=== PATIENT | female | born 1980 | race American Indian/Alaskan Native ===

== ENCOUNTER 2017-02-06 18:16 | Emergency (ER) | payer SELFPAY ==
[2017-02-06 19:55] LABS: Basophils % (Auto) 0.8 % (0.0-1.8); Eosinophils % (Auto) 3.8 % (0.0-4.3); Hematocrit 37.7 % (30.3-42.9); Hemoglobin 12.4 gm/dl (10.1-14.3); Mean Corpuscular HGB Conc 33 % (30-34); Mean Corpuscular Hemoglobin 31 pg (28-32); Mean Corpuscular Volume 93 fl (79-97); Platelet Count 292 K/mm3 (140-440); Red Blood Count 4.06 M/mm3 (3.65-5.03); Red Cell Distribution Width 13.7 % (13.2-15.2); White Blood Count 4.1 K/mm3 (4.5-11.0)
[2017-02-06 20:13] LABS: Alanine Aminotransferase 8 units/L (7-56); Alkaline Phosphatase 56 units/L (35-129); Anion Gap 15 mmol/L; BUN/Creatinine Ratio 14.28; Bilirubin,Total < 0.20 mg/dL (0.1-1.2); Blood Urea Nitrogen 10 mg/dL (7-17); Calcium 8.6 mg/dL (8.4-10.2); Carbon Dioxide 26 mmol/L (22-30); Chloride 99.8 mmol/L (98-107); Glucose 78 mg/dL (65-100); Lipase 23 units/L (13-60); Potassium 3.8 mmol/L (3.6-5.0); Sodium 137 mmol/L (137-145); Total Protein 8.1 g/dL (6.3-8.2)
[2017-02-06 20:33] LABS: Bacteria,Urine 2+ /HPF (Negative); Bilirubin,Urine NEG (Negative); Blood,Urine SM (Negative); Ketones,Urine TR mg/dL (Negative); Leukocyte Esterase,Urine TR (Negative); Mucus,Urine FEW /HPF; Nitrite,Urine NEG (Negative); Protein,Urine <15 mg/dL mg/dL (Negative); Urobilinogen,Urine < 2.0 mg/dL (<2.0); WBC,Urine < 1.0 /HPF (0.0-6.0)
[2017-02-06] MEDS ORDERED: ZOFRAN IV ONE (22:56)
[2017-02-06] MEDS ORDERED: NACL 0.9% 1000 ML 1,000 ML IV ONE (22:56)
--- NOTE | 2017-02-06 22:58 | Emergency Department Report ---
ED General Adult HPI - General Chief complaint: Abdominal Pain Stated complaint: SOB/ABD/PAIN/VOMATING/BLEEDING Time Seen by Provider: 02/06/17 22:44 Source: patient Mode of arrival: Ambulatory Limitations: No Limitations - History of Present Illness Initial comments: This is a 36-year-old female. She is previously unknown to me. Her primary care doctor is Dr. Kishore Blum. Her type copy examiner is at [place], but she does not know her name is. The patient has a past medical history of right ventricular thrombosis, which was treated with anticoagulation in 2010. She also has a past medical history of hypertension, asthma, sjogren syndrome The patient presents to the ER with numerous complaints. Her first complaint is abdominal pain. Her abdominal pain is achy. It is in the lower quadrants. It is associated with vaginal bleeding and cramping. She reports that she's been having vaginal bleeding intermittently. She also reports vomiting and breast discharge. The emesis is clear, nonbloody and nonbilious. The symptoms have no exacerbating or relieving factors; the exception is the abdominal pain, which increases with palpation. The patient also complains of shortness of breath. She reports that she was outside working in her garden, and felt like she began to have shortness of breath. There is no leg pain. There is no leg swelling. No recent trips greater than 4 hours. No recent hospitalizations. The patient describes a few episodes of nausea and vomiting. The patient has no sudden thunderclap headache. There is no chest pain. The patient had a nuclear stress test performed at this hospital in June 2016, which was read to be a normal myocardial perfusion study, with an ejection fraction of 65%. In addition, she had a transthoracic echocardiogram, which demonstrated an ejection fraction of 55-60%. Her main complaint is abdominal pain, vaginal bleeding, shortness of breath. There is no cocaine use. -: Gradual Location: abdomen, pelvis Severity scale (0 -10): 6 Quality: aching Consistency: intermittent Improves with: rest Worsens with: movement Associated Symptoms: loss of appetite, malaise, shortness of breath, weakness. denies: confusion, chest pain - Related Data Previous Rx's Medication Instructions Recorded Last Taken Type Albuterol Sulfate [Proair 90 mcg IH Q4HR PRN #2 aer.pow.ba 02/07/17 Unknown Rx Respiclick] Ketorolac [Toradol] 10 mg PO Q6H PRN #20 tablet 02/07/17 Unknown Rx Ondansetron [Zofran Odt] 4 mg PO QID PRN #20 tab.rapdis 02/07/17 Unknown Rx Allergies Allergy/AdvReac Type Severity Reaction Status Date / Time codeine Allergy Hives Verified 02/26/15 12:25 ED Review of Systems ROS: Stated complaint: SOB/ABD/PAIN/VOMATING/BLEEDING Other details as noted in HPI Constitutional: malaise Eyes: denies: vision change ENT: congestion. denies: epistaxis Respiratory: shortness of breath Gastrointestinal: abdominal pain Genitourinary: abnormal menses Musculoskeletal: back pain, arthralgia Neurological: headache Psychiatric: anxiety ED Past Medical Hx - Past Medical History Previous Medical History?: Yes Hx Hypertension: Yes Hx Congestive Heart Failure: No Hx Diabetes: No Hx Asthma: No Hx COPD: No Hx HIV: No Additional medical history: Anxiety, Sjogrens disease - Surgical History Past Surgical History?: Yes Additional Surgical History: UFE. TUBAL LIGATION - Social History Smoking Status: Never Smoker Substance Use Type: None - Medications Home Medications: Home Medications Medication Instructions Recorded Confirmed Last Taken Type Albuterol Sulfate [Proair 90 mcg IH Q4HR PRN #2 aer.pow.ba 02/07/17 Unknown Rx Respiclick] Ketorolac [Toradol] 10 mg PO Q6H PRN #20 tablet 02/07/17 Unknown Rx Ondansetron [Zofran Odt] 4 mg PO QID PRN #20 tab.rapdis 02/07/17 Unknown Rx ED Physical Exam - General Limitations: No Limitations General appearance: alert, in no apparent distress - Head Head exam: Present: atraumatic, normocephalic - Eye Eye exam: Present: normal appearance, EOMI, other (visual acuity intact to finger counting, color perception, reading at a close distance). Absent: nystagmus - ENT ENT exam: Present: normal exam, normal orophraynx, mucous membranes moist, normal external ear exam - Neck Neck exam: Present: normal inspection, full ROM. Absent: tenderness, meningismus - Respiratory Respiratory exam: Present: normal lung sounds bilaterally. Absent: respiratory distress, wheezes, rales, rhonchi, stridor, chest wall tenderness, accessory muscle use, decreased breath sounds, prolonged expiratory - Cardiovascular Cardiovascular Exam: Present: regular rate, normal rhythm, normal heart sounds. Absent: bradycardia, tachycardia, irregular rhythm, systolic murmur, diastolic murmur, rubs, gallop - GI/Abdominal GI/Abdominal exam: Present: soft, tenderness (there is mild lower abdominal tenderness, there is no rebound, guarding or peritoneal signs.), normal bowel sounds. Absent: distended, guarding, rebound, rigid, pulsatile mass - External exam: Present: normal external exam Speculum exam: Present: vaginal bleeding Bi-manual exam: Present: normal bi-manual exam, other (escorted by nurse Florinda Srivastava). Absent: cervical motion tendernes, adnexal tenderness, adnexal mass - Extremities Exam Extremities exam: Present: normal inspection, full ROM, normal capillary refill. Absent: tenderness, pedal edema, joint swelling, calf tenderness - Back Exam Back exam: Present: normal inspection, full ROM. Absent: tenderness, CVA tenderness (R), CVA tenderness (L), muscle spasm, paraspinal tenderness, vertebral tenderness - Neurological Exam Neurological exam: Present: alert, oriented X3, normal gait (there is no pass pointing. Negative pronator drift. Normal [id number]. Normal gait. Normal tandem gait. Negative Romberg examination), other (Extraocular movements intact. Tongue midline. No facial droop. Facial sensation intact to light touch in the V1, V2, V3 distribution bilaterally. 5 and 5 strength in 4 extremities.. Sensation is intact to light touch in 4 extremities.). Absent: motor sensory deficit - Skin Skin exam: Present: warm, dry, intact, normal color. Absent: rash ED Course Vital Signs 02/06/17 02/06/17 02/06/17 19:19 22:37 22:39 Temperature 98.1 F Pulse Rate 80 71 Respiratory 18 18 18 Rate Blood Pressure 140/93 Blood Pressure 133/79 [Right] O2 Sat by Pulse 100 100 Oximetry 02/07/17 02/07/17 01:43 03:56 Temperature Pulse Rate 71 62 Respiratory 18 18 Rate Blood Pressure Blood Pressure 129/79 136/84 [Right] O2 Sat by Pulse 100 100 Oximetry - Reevaluation(s) Reevaluation #1: 02/07/17 01:23 differential diagnosis: Bronchitis, allergies, pneumonia, pulmonary embolus, acute coronary syndrome, colitis, diverticulitis, appendicitis, renal colic, pelvic inflammatory disease, dysfunctional uterine bleeding Assessment and plan: 36-year-old female with numerous nonspecific complaints. She is afebrile with reassuring vital signs. Her EKG is morphologically abnormal, but appears unchanged compared to prior EKG. She had a negative nuclear stress test within the past 12 months. Low risk by BUDDY score, low risk by heart score, no pulmonary embolus or DVT risk factors, however she is unable to explain where the right ventricular thrombus came from, therefore a d-dimer sent to risk stratify the patient for pulmonary embolus. X-ray the chest is unremarkable. She has minimal vaginal bleeding, but does not have significant gynecologic tenderness, therefore think pelvic inflammatory disease is unremarkable. She is actively vomiting when I'm interviewing her initially. However this improved after IV fluids and Zofran. A d-dimer is currently pending. Her abdomen is minimally tender, with no rebound, guarding or peritoneal signs. Reevaluation #2: 02/07/17 01:34 Of note, the patient also complained of nonspecific breast discharge. On her breast examination the breasts are nontender, there is no obvious discharge. During the breast examination, I am escorted by nurse Florinda Srivastava Reevaluation #3: 02/07/17 04:02 The patient is reassessed. There is no active vomiting. Her abdomen is now soft on repeat examination. Noncontrast CT scan demonstrates no acute disease that would require emergent intervention. Nonspecific lesion noted in the right ovary. She had a benign gynecologic examination. Therefore think ovarian torsion is very unlikely. She can follow up with an outpatient gynecology for this. Patient will be discharged with pain medication, nausea medication, instructions to follow up with outpatient gynecology. Return precautions are reviewed. ED Medical Decision Making - Lab Data Result diagrams: 02/06/17 19:37 02/06/17 19:37 Vital Signs 02/06/17 02/06/17 02/06/17 19:19 22:37 22:39 Temperature 98.1 F Pulse Rate 80 71 Respiratory 18 18 18 Rate Blood Pressure 140/93 Blood Pressure 133/79 [Right] O2 Sat by Pulse 100 100 Oximetry Lab Results 02/06/17 02/06/17 02/06/17 Range/Units 19:37 19:37 20:15 WBC 4.1 L (4.5-11.0) K/mm3 RBC 4.06 (3.65-5.03) M/mm3 Hgb 12.4 (10.1-14.3) gm/dl Hct 37.7 (30.3-42.9) % MCV 93 (79-97) fl MCH 31 (28-32) pg MCHC 33 (30-34) % RDW 13.7 (13.2-15.2) % Plt Count 292 (140-440) K/mm3 Lymph % (Auto) 51.2 H (13.4-35.0) % Weber % (Auto) 7.7 H (0.0-7.3) % Eos % (Auto) 3.8 (0.0-4.3) % Baso % (Auto) 0.8 (0.0-1.8) % Lymph # 2.1 (1.2-5.4) K/mm3 Weber # 0.3 (0.0-0.8) K/mm3 Eos # 0.2 (0.0-0.4) K/mm3 Baso # 0.0 (0.0-0.1) K/mm3 Seg Neutrophils % 36.5 L (40.0-70.0) % Seg Neutrophils # 1.5 L (1.8-7.7) K/mm3 Sodium 137 (137-145) mmol/L Potassium 3.8 (3.6-5.0) mmol/L Chloride 99.8 (98-107) mmol/L Carbon Dioxide 26 (22-30) mmol/L Anion Gap 15 mmol/L BUN 10 (7-17) mg/dL Creatinine 0.7 (0.7-1.2) mg/dL Estimated GFR > 60 ml/min BUN/Creatinine Ratio 14.28 % Glucose 78 (65-100) mg/dL Calcium 8.6 (8.4-10.2) mg/dL Total Bilirubin < 0.20 (0.1-1.2) mg/dL AST 14 (5-40) units/L ALT 8 (7-56) units/L Alkaline Phosphatase 56 (35-129) units/L Troponin T (0.00-0.029) ng/mL Total Protein 8.1 (6.3-8.2) g/dL Albumin 4.0 (3.9-5) g/dL Albumin/Globulin Ratio 1.0 % Lipase 23 (13-60) units/L Urine Color Yellow (Yellow) Urine Turbidity Clear (Clear) Urine pH 5.0 (5.0-7.0) Ur Specific [place] 1.026 (1.003-1.030) Urine Protein <15 mg/dl (Negative) mg/dL Urine Glucose (UA) Neg (Negative) mg/dL Urine Ketones Tr (Negative) mg/dL Urine Blood Sm (Negative) Urine Nitrite Neg (Negative) Urine Bilirubin Neg (Negative) Urine Urobilinogen < 2.0 (<2.0) mg/dL Ur Leukocyte Esterase Tr (Negative) Urine WBC (Auto) < 1.0 (0.0-6.0) /HPF Urine RBC (Auto) 4.0 (0.0-6.0) /HPF U Epithel Cells (Auto) 2.0 (0-13.0) /HPF Urine Bacteria (Auto) 2+ (Negative) /HPF Hyaline Casts 1 /LPF Urine Mucus Few /HPF Urine HCG, Qual Negative (Negative) 02/06/17 Range/Units 23:56 WBC (4.5-11.0) K/mm3 RBC (3.65-5.03) M/mm3 Hgb (10.1-14.3) gm/dl Hct (30.3-42.9) % MCV (79-97) fl MCH (28-32) pg MCHC (30-34) % RDW (13.2-15.2) % Plt Count (140-440) K/mm3 Lymph % (Auto) (13.4-35.0) % Weber % (Auto) (0.0-7.3) % Eos % (Auto) (0.0-4.3) % Baso % (Auto) (0.0-1.8) % Lymph # (1.2-5.4) K/mm3 Weber # (0.0-0.8) K/mm3 Eos # (0.0-0.4) K/mm3 Baso # (0.0-0.1) K/mm3 Seg Neutrophils % (40.0-70.0) % Seg Neutrophils # (1.8-7.7) K/mm3 Sodium (137-145) mmol/L Potassium (3.6-5.0) mmol/L Chloride (98-107) mmol/L Carbon Dioxide (22-30) mmol/L Anion Gap mmol/L BUN (7-17) mg/dL Creatinine (0.7-1.2) mg/dL Estimated GFR ml/min BUN/Creatinine Ratio % Glucose (65-100) mg/dL Calcium (8.4-10.2) mg/dL Total Bilirubin (0.1-1.2) mg/dL AST (5-40) units/L ALT (7-56) units/L Alkaline Phosphatase (35-129) units/L Troponin T < 0.010 (0.00-0.029) ng/mL Total Protein (6.3-8.2) g/dL Albumin (3.9-5) g/dL Albumin/Globulin Ratio % Lipase (13-60) units/L Urine Color (Yellow) Urine Turbidity (Clear) Urine pH (5.0-7.0) Ur Specific [place] (1.003-1.030) Urine Protein (Negative) mg/dL Urine Glucose (UA) (Negative) mg/dL Urine Ketones (Negative) mg/dL Urine Blood (Negative) Urine Nitrite (Negative) Urine Bilirubin (Negative) Urine Urobilinogen (<2.0) mg/dL Ur Leukocyte Esterase (Negative) Urine WBC (Auto) (0.0-6.0) /HPF Urine RBC (Auto) (0.0-6.0) /HPF U Epithel Cells (Auto) (0-13.0) /HPF Urine Bacteria (Auto) (Negative) /HPF Hyaline Casts /LPF Urine Mucus /HPF Urine HCG, Qual (Negative) - EKG Data 02/07/17 01:26 EKG #1: Normal sinus, 69 bpm, normal intervals, normal axis, not morphologically consistent with STEMI, appears unchanged compared to prior EKG from 09/29/2016. There is poor R-wave progression. This is an abnormal EKG, which is not morphologically consistent with stemi EKG #2: Normal sinus, 63 bpm, normal intervals, normal axis, not consistent with STEMI, persistent poor r wave progression. 02/07/17 04:01 - Radiology Data Radiology results: image reviewed interpreted by me: X-ray the chest is negative for acute disease. CT scan of the abdomen and pelvis with IV contrast: The uterus is enlarged. Fibroid formation with calcification is noted. Large cystic density noted off the right ovary. Left adnexa unremarkable. Is no evidence of enteritis, or appendicitis. Critical care attestation.: If time is entered above; I have spent that time in minutes in the direct care of this critically ill patient, excluding procedure time. ED Disposition Clinical Impression: Abdominal pain, Vaginal bleeding, Dyspnea Disposition: DISCHARGED TO HOME OR SELFCARE Is pt being admited?: No Does the pt Need Aspirin: No Condition: Stable Instructions: Abdominal Pain (ED) Additional Instructions: Take the medications as directed. Follow up with an outpatient primary care doctor or plant care worker within the next week. [facility] is a local gynecology group. Dr. Blum is a local primary care doctor. Return to the ER right away with new pain, worsened pain, migration of pain, fevers or chills, intractable nausea or vomiting, inability to tolerate liquid feeds, new, worsening or different symptoms. Prescriptions: Albuterol Sulfate [Proair Respiclick] 90 mcg IH Q4HR PRN #2 aer.pow.ba PRN Reason: Wheezing Ketorolac [Toradol] 10 mg PO Q6H PRN #20 tablet PRN Reason: Pain Ondansetron [Zofran Odt] 4 mg PO QID PRN #20 tab.rapdis PRN Reason: Nausea Referrals: PRIMARY CARE, [Primary Care Provider] - 3-5 Days KISHORE BLUM MD [Staff Physician] - 3-5 Days [facility] [Provider Group] - 3-5 Days
[2017-02-06] MEDS ORDERED: TORADOL IV ONE (23:52)
[2017-02-07 01:26] LABS: INR 0.96 (0.87-1.13)
[2017-02-07 03:56] VITALS: BP 136/84
--- NOTE | 2017-02-07 03:56 | Cat Scan Report ---
FINAL REPORT PROCEDURE: CT ABDOMEN PELVIS W CON TECHNIQUE: Computerized axial tomography of the abdomen and pelvis was performed after the IV injection of iodinated nonionic contrast. HISTORY: rlq pain, IV and oral contrast COMPARISON: 09/29/2016 FINDINGS: Visualized lower thorax: No significant abnormality. Liver: Normal size and attenuation. Spleen: Normal size and attenuation. Gallbladder and biliary system: Normal. Pancreas: Normal. Adrenals: Normal. Kidneys: Normal. GI tract: No obstruction. No ileus or enteritis. The appendix is normal.. Lymph nodes and mesentery: Normal. Vasculature: Normal. Bladder: Normal. Reproductive organs: The uterus is enlarged. Fibroid formation with a calcification in the posterior uterine myometrium is noted. There is a large cystic density off of the right ovary this measures 5.3 x 3.3 x 3 centimeters. Further evaluation with ultrasound would be of benefit. The left adnexal region appears normal.. Peritoneum: No free fluid. Musculoskeletal structures: No significant abnormality. Other: None. IMPRESSION: No evidence of intestinal or urinary tract obstruction. No ileus or enteritis. Large cyst off of the right ovary measures up to 5.3 centimeters. Further evaluation with ultrasound would be of benefit. Fibroid formation within the uterus is noted.
--- NOTE | 2017-02-07 09:19 | XRay Report ---
CHEST ONE VIEW INDICATION: Dyspnea. COMPARISON: 07/03/2016. FINDINGS: Portable, single, frontal chest radiograph suggests borderline cardiomegaly. Normal mediastinal contours. Clear lungs. Unremarkable bones. CONCLUSION: No acute disease in the chest, as described. Thank you for the opportunity to participate in this patient's care.
== END 2017-02-07 04:37 | disposition home or self-care (01) ==
LOC: ED 18:16
DX: N93.9 Abnormal uterine and vaginal bleeding, unspecified (principal); R06.02 Shortness of breath; R10.30 Lower abdominal pain, unspecified
CPT/HCPCS: 36415; 71010; 74177; 80053; 81001; 81025; 82962; 83690; 84484; 85025; 85379; 85610; 87591; 93005; 93010; 96361; 96374; 96375; 99285; J1885; J2405; J7030; Q9967

== ENCOUNTER 2018-03-07 10:35 | Emergency (ER) | payer BC ==
[2018-03-07 11:29] LABS: Hemoglobin 13.4 gm/dl (10.1-14.3); Mean Corpuscular HGB Conc 34 % (30-34); Mean Corpuscular Hemoglobin 32 pg (28-32); Mean Corpuscular Volume 92 fl (79-97); Platelet Count 281 K/mm3 (140-440); Red Blood Count 4.24 M/mm3 (3.65-5.03)
[2018-03-07 11:40] LABS: INR 0.88 (0.87-1.13)
[2018-03-07 11:41] LABS: Partial Thromboplastin Time 26.9 Sec. (24.2-36.6)
[2018-03-07 12:01] LABS: Alanine Aminotransferase 6 units/L (7-56); Albumin 3.9 g/dL (3.9-5); BUN/Creatinine Ratio 17; Blood Urea Nitrogen 12 mg/dL (7-17); Hemolysis Index 20
--- NOTE | 2018-03-07 16:40 | Emergency Department Report ---
HPI - General Chief Complaint: Dyspnea/Respdistress Time Seen by Provider: 03/07/18 16:10 - HPI HPI: 37-year-old demented female presents to emergency department with complaint of lower extremity swelling and shortness of breath that has been going on since last , 6 days ago. She went to see her primary care physician, Dr. Kishore Blum, the next day but saw another healthcare provider. Time she says she had a ultrasound done of the legs that ruled out a DVT. She does have a history of a previous DVT to the right leg and the left arm about 5 or 6 months ago. She was on Coumadin and was supposed to be on it for 6 months but stopped taking it after 3 months secondary to a insurance lapse. She also says that she has been on water pills for lower extremity swelling in the past once again stopped this because of insurance reasons. She has a past medical history of hypertension and Sjogren's disease. She has a quantitative research analyst, ceiling installer and vascular surgeon. She has not taken anything for her symptoms prior to presentation. No Recent travel or sick contacts at home. ED Past Medical Hx - Past Medical History Hx Hypertension: Yes Hx Congestive Heart Failure: No Hx Diabetes: No Hx Asthma: No Hx COPD: No Hx HIV: No Additional medical history: Anxiety, Sjogrens disease - Surgical History Additional Surgical History: UFE. TUBAL LIGATION - Social History Smoking Status: Never Smoker Substance Use Type: None - Medications Home Medications: Home Medications Medication Instructions Recorded Confirmed Last Taken Type Albuterol Sulfate [Proair 90 mcg IH Q4HR PRN #2 aer.pow.ba 02/07/17 Unknown Rx Respiclick] Ketorolac [Toradol] 10 mg PO Q6H PRN #20 tablet 02/07/17 Unknown Rx Ondansetron [Zofran Odt] 4 mg PO QID PRN #20 tab.rapdis 02/07/17 Unknown Rx ED Review of Systems ROS: Stated complaint: LEG PAIN/HX OF BLOOD CLOTS Other details as noted in HPI Comment: All other systems reviewed and negative Constitutional: denies: chills, fever Eyes: denies: eye pain, eye discharge, vision change ENT: denies: ear pain, throat pain Respiratory: shortness of breath. denies: cough, wheezing Cardiovascular: edema. denies: chest pain, palpitations Gastrointestinal: denies: abdominal pain, nausea, diarrhea Genitourinary: denies: urgency, dysuria, discharge Musculoskeletal: myalgia. denies: back pain Skin: denies: rash, lesions Neurological: denies: headache, weakness, paresthesias Physical Exam - Physical Exam Vital Signs: Vital Signs 03/07/18 03/07/18 10:47 14:59 Temperature 98.6 F 98.7 F Pulse Rate 74 72 Respiratory 18 16 Rate Blood Pressure 131/94 Blood Pressure 143/95 [Left] O2 Sat by Pulse 99 100 Oximetry Physical Exam: GENERAL: The patient is well-developed well-nourished. HENT: Normocephalic. Atraumatic. Patient has moist mucous membranes. EYES: Extraocular motions are intact. Pupils equal reactive to light bilaterally. NECK: Supple. Trachea is midline. CHEST/LUNGS: Clear to auscultation. There is no respiratory distress noted. HEART/CARDIOVASCULAR: Regular. There is no tachycardia. There is no murmur. ABDOMEN: Abdomen is soft, nontender. Patient has normal bowel sounds. There is no abdominal distention. SKIN: Skin is warm and dry. There is some mild nonpitting swelling to the bilateral lower extremities. NEURO: The patient is awake, alert, and oriented. The patient is cooperative. The patient has no focal neurologic deficits. The patient has normal speech. MUSCULOSKELETAL: There is no tenderness or deformity. There is no limitation range of motion. There is no evidence of acute injury. ED Course Vital Signs 03/07/18 03/07/18 10:47 14:59 Temperature 98.6 F 98.7 F Pulse Rate 74 72 Respiratory 18 16 Rate Blood Pressure 131/94 Blood Pressure 143/95 [Left] O2 Sat by Pulse 99 100 Oximetry ED Medical Decision Making - Lab Data Result diagrams: 03/07/18 11:06 03/07/18 11:06 - Radiology Data Radiology results: report reviewed, image reviewed interpreted by me: Chest x-ray does not show any acute process. There are no pleural effusions, obvious pneumonia and there is no pneumothorax. Bilateral lower extremity venous Doppler negative for DVT - Medical Decision Making Patient presents with a six-day history of shortness of breath, lower extremities swelling and now some left thigh pain. Previous history of DVT and subtherapeutic on her Coumadin as she has not taken it in the past few months. Vital signs stable throughout her ED course including being afebrile and no hypoxia. The patient does not appear to be in any respiratory distress. Lung sounds are clear. Chest x-ray does not show any acute process. Labs are unremarkable including a negative d-dimer. Despite this, patient still had bilateral lower extremity venous Dopplers that preliminarily have come back as negative as well. She has good follow-up with primary care, cardiology, vascular. We discussed some things she can do to decrease the lower extremity swelling and she will follow up with these other physicians to discuss her symptoms as well as whether or not to a back on anticoagulation. She will return to the ER with any worsening of her symptoms or any acute distress. - Differential Diagnosis CHF, venous stasis, DVT, muscle spasm Critical Care Time: No Critical care attestation.: If time is entered above; I have spent that time in minutes in the direct care of this critically ill patient, excluding procedure time. ED Disposition Clinical Impression: History of DVT (deep vein thrombosis), Left thigh pain Dyspnea Qualifiers: Dyspnea type: unspecified Qualified Code(s): R06.00 - Dyspnea, unspecified Disposition: DC-01 TO HOME OR SELFCARE Is pt being admited?: No Condition: Stable Instructions: Dyspnea (ED) Additional Instructions: Please follow-up with your primary care physician and your vascular surgeon to discuss whether or not to go back on anticoagulation and for further follow-up. Return to the emergency Department with any worsening of your symptoms or any acute distress. For swelling in her legs, you can use elevation and compression when you are resting, but do not stay immobile. Referrals: KISHORE BLUM MD [Staff Physician] - 3-5 Days Time of Disposition: 17:03
[2018-03-07 17:45] VITALS: BP 122/88
--- NOTE | 2018-03-12 14:13 | XRay Report ---
FINAL REPORT EXAM: XR CHEST ROUTINE 2V HISTORY: sob TECHNIQUE: Frontal and lateral views of the chest. PRIORS: None currently available. FINDINGS: Cardiac silhouette is within normal limits. There is no effusion. There is no pneumothorax. There is no consolidation. There are no suspicious osseous lesions. IMPRESSION: No acute cardiopulmonary findings.
== END 2018-03-07 17:42 | disposition home or self-care (01) ==
LOC: ED 10:35
DX: R06.00 Dyspnea, unspecified (principal); Z86.718 Personal history of other venous thrombosis and embolism; M79.652 Pain in left thigh; I10 Essential (primary) hypertension; F41.9 Anxiety disorder, unspecified; Z98.51 Tubal ligation status; M35.00 Sjogren syndrome, unspecified
CPT/HCPCS: 36415; 71046; 80053; 84703; 85027; 85379; 85610; 85730; 93970; 99284

== ENCOUNTER 2018-06-19 19:58 | Emergency (ER) | payer BC ==
[2018-06-20 03:06] VITALS: BP 139/72
[2018-06-20] MEDS ORDERED: LET TOPICAL TP ONE (08:49)
[2018-06-20] MEDS ORDERED: MOTRIN PO ONE (08:49)
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
== END 2018-06-20 09:56 | disposition left against medical advice (07) ==
LOC: ED 19:58
DX: K64.4 Residual hemorrhoidal skin tags (principal); I10 Essential (primary) hypertension; Z98.51 Tubal ligation status; Z88.6 Allergy status to analgesic agent
CPT/HCPCS: 99282

== ENCOUNTER 2018-12-04 17:35 | Emergency (ER) | payer SELFPAY | END 2018-12-04 18:20 | disposition left against medical advice (07) | LOC: ED 17:35 ==